=== PATIENT | male | born 2000 | race Caucasian/White ===

== ENCOUNTER 2022-06-26 01:32 | Emergency (ER) | payer SELFPAY ==
[~2022-06-26] VITALS: Ht 185.4 cm; Wt 73.0 kg
[2022-06-26] MEDS ORDERED: OXYMETAZOLINE HCL NASAL SPRAY 15ML BOTHNSTRLS STA (03:11)
[2022-06-26] MEDS ORDERED: OXYMETAZOLINE HCL NASAL SPRAY 15ML BOTHNSTRLS NR (03:30)
[2022-06-26] MEDS ORDERED: OXYM30SP26 BOTHNSTRLS (03:56)
[2022-06-26 04:04] VITALS: BP 110/75
== END 2022-06-26 04:05 | disposition home or self-care (01) ==
LOC: ER 01:32
DX: R04.0 Epistaxis (principal)
CPT/HCPCS: 99281